=== PATIENT | female | born 1990 | race Caucasian/White ===

== ENCOUNTER 2021-11-12 20:42 | Inpatient (IN) ==
[2021-11-12] MEDS ORDERED: BUTORPHANOL 2 MG/ML VIAL IV PRN (20:59)
[2021-11-12 21:16] LABS: Basophils % 0.3 % (0.0-0.8); Eosinophils # 0.1 10*3/uL (0.0-0.87); Eosinophils % 1.1 % (0.00-10.9); Hematocrit 35.8 VOL% (35.7-47.0); Hemoglobin 12.2 GM/DL (12.0-16.0); Immature Granulocytes % 2.5 %; Immature Granulocytes Absolute 0.29 #; Lymphocytes # 2.5 10*3/uL (1.4-4.0); Lymphocytes % 21.3 % (21.3-54.2); Mean Corpuscular HGB Conc 34.1 GM/DL (32-36); Mean Platelet Volume 12.2 FL (9.6-12.0); Monocytes % 10.6 % (1.7-12.7); NRBC # 0.02 10*3/uL; Neutrophils % 64.2 % (38.7-73.9); Platelet Count 118 T/CUMM (130-400); Red Blood Count 3.77 MC/CUMM (3.8-5.5); Red Cell Distribution Width 14.1 % (9.3-17.3); White Blood Count 11.6 T/CUMM (4-12)
[2021-11-13] MEDS: ONDANSETRON 4 MG/2 ML VIAL IV PRN ×2 (02:56→11:47)
[2021-11-13] MEDS: LACTATED RINGERS 1,000 ML IV SCH ×2 (08:20→08:33)
[2021-11-13] MEDS: MEPERIDINE 50 MG/1 ML VIAL IV PRN ×2 (08:22→11:42)
[2021-11-13] MEDS ORDERED: LACTATED RINGERS 1,000 ML IV ONE (12:07)
[2021-11-13] MEDS ORDERED: FAMOTIDINE 20 MG/2 ML VIAL IV ONE (12:07)
[2021-11-13] MEDS ORDERED: CITRIC ACID/SODIUM CITRATE 30 ML UDCUP PO ONE (12:07)
[2021-11-13] MEDS ORDERED: diphenhydrAMINE 50 MG/1 ML VIAL IV PRN ×2 (12:07)
[2021-11-13] MEDS ORDERED: NALOXONE 0.4 MG/ML VIAL IV PRN (12:07)
[2021-11-13] MEDS ORDERED: PROMETHAZINE 25 MG/1 ML VIAL IM ONE (12:07)
[2021-11-13] MEDS ORDERED: hydrOXYzine HCL 25 MG/1 ML VIAL IM PRN (12:07)
[2021-11-13] MEDS ORDERED: ePHEDrine 50 MG/ML VIAL IV PRN (12:07)
[2021-11-13] MEDS ORDERED: fentaNYL 2 MCG/ROPIV 0.2% EPID 100 ML EPIDURAL SCH (12:30)
[2021-11-13 15:29] LABS: Bilirubin,Urine Negative (Negative); Blood, Urine Small mg/dL (Negative); Glucose,Urine (UA) Negative (Negative); Ketones,Urine 20 mg/dL (Negative); Mucus,Urine Occasional /LPF (Occasional); Nitrite,Urine Negative (Negative); Protein,Urine Negative; RBC,Urine 20 /HPF (0-4); Squamous Epithelial Cell,Urine Occasional /HPF (0-10); Urine Appearance CLEAR (Clear); Urine Color Yellow (Yellow); Urine Specific Gravity 1.018 (1.001-1.035); Urine Urobilinogen < 2.0 EU/DL (<2.0)
[2021-11-13] MEDS ORDERED: OXYTOCIN/LR 20 UNIT/1,000 ML BAG IV SCH (16:00)
[2021-11-13] MEDS ORDERED: miSOPROStoL 200 MCG TABLET ONE (16:04)
[2021-11-13] MEDS ORDERED: METHYLERGONOVINE 0.2 MG/1 ML AMP ONE (16:05)
[2021-11-13] MEDS ORDERED: CARBOPROST TROMETHAMINE 250 MCG/ML AMP IM ONE (16:05)
[2021-11-13] MEDS ORDERED: LIDOCAINE 1% 50 ML VIAL ONE (17:03)
[2021-11-13 18:53] LABS: Cord Arterial Blood HCO3 21.3 MMOL/L
[2021-11-13 18:56] LABS: Cord Venous Blood HCO3 20.2 MMOL/L; Cord Venous Blood PCO2 48.7 MMHG; Cord Venous Blood PO2 24.2 MMHG
[2021-11-13] MEDS ORDERED: BENZOCAINE 20%/MENTHOL 0.5% SPRAY 56 GM CAN TOP PRN (22:14)
[2021-11-13] MEDS ORDERED: WITCH HAZEL PADS 100/JAR TOP PRN (22:14)
[2021-11-13] MEDS ORDERED: DIPH/TET/ACEL PERT BOOSTER VACCINE 0.5 ML VIAL IM ONE (22:14)
[2021-11-13] MEDS ORDERED: ACETAMINOPHEN 325 MG TABLET PO PRN (22:14)
[2021-11-13] MEDS ORDERED: OXYTOCIN/LR 20 UNIT/1,000 ML BAG IV ONE (22:14)
[2021-11-13] MEDS ORDERED: oxyCODONE/ACETAMINOPHEN 5-325 MG TABLET PO PRN (22:14)
[2021-11-13] MEDS ORDERED: LANOLIN 50% CREAM 0.3 OZ TUBE TOP PRN (22:14)
[2021-11-13] MEDS ORDERED: MEASLES/MUMPS/RUBELLA VACCINE 0.5 ML VIAL SUBCUT ONE (22:14)
[2021-11-13] MEDS ORDERED: BISACODYL 10 MG SUPP RECTAL PRN (22:14)
[2021-11-13] MEDS ORDERED: HYDROCORTISONE 2.5% RECTAL CREAM 30 GM TUBE TOP PRN (22:14)
[2021-11-13] MEDS ORDERED: RHO(D) IMMUNE GLOBULIN 300 MCG SYRINGE IM ONE (22:14)
[2021-11-13] MEDS ORDERED: ONDANSETRON 4 MG/2 ML VIAL IV PRN (22:14)
[2021-11-13] MEDS: IBUPROFEN 800 MG TABLET PO PRN (22:31)
[2021-11-14 05:52] LABS: Basophils % 0.2 % (0.0-0.8); Eosinophils # 0.1 10*3/uL (0.0-0.87); Eosinophils % 0.5 % (0.00-10.9); Hematocrit 34.5 VOL% (35.7-47.0); Hemoglobin 11.5 GM/DL (12.0-16.0); Immature Granulocytes % 0.9 %; Immature Granulocytes Absolute 0.15 #; Lymphocytes # 1.8 10*3/uL (1.4-4.0); Lymphocytes % 10.5 % (21.3-54.2); Mean Corpuscular HGB Conc 33.3 GM/DL (32-36); Mean Corpuscular Volume 96.1 FL (87-102); Mean Platelet Volume 12.5 FL (9.6-12.0); Monocytes % 6.3 % (1.7-12.7); Neutrophils % 81.6 % (38.7-73.9); Platelet Count 98 T/CUMM (130-400); Red Blood Count 3.59 MC/CUMM (3.8-5.5); Red Cell Distribution Width 13.9 % (9.3-17.3); White Blood Count 16.7 T/CUMM (4-12)
[2021-11-14] MEDS: DOCUSATE SODIUM 100 MG CAPSULE PO SCH ×3 (09:00→19:35)
[2021-11-14] MEDS: IBUPROFEN 800 MG TABLET PO PRN (12:13)
[2021-11-14] MEDS: oxyCODONE/ACETAMINOPHEN 5-325 MG TABLET PO PRN (19:36)
[2021-11-15] MEDS: DOCUSATE SODIUM 100 MG CAPSULE PO SCH (09:00)
[2021-11-15] MEDS: oxyCODONE/ACETAMINOPHEN 5-325 MG TABLET PO PRN (09:00)
[2021-11-15 11:11] VITALS: BP 136/84
== END 2021-11-15 13:37 | disposition home or self-care (01) | DRG 807 ==
LOC: N.LDOUT 20:42 → N.LD 20:46 → N.OB 11-13 21:45
PROVIDERS: ADMIT Specialist; ATTEND Specialist